=== PATIENT | male | born 1940 | race African-American/Black ===

== ENCOUNTER 2021-04-27 13:30 | Inpatient (IN) | payer OTHER, SELFPAY ==
[~2021-04-27] VITALS: Ht 167.6 cm; Wt 69.4 kg
[~2021-04-27 13:30] MED LIST: GLU500
[2021-04-27 13:41] VITALS: BP 96/66
[2021-04-27] MEDS ORDERED: cefTRIAXone 1,000 MG in DEXT 5% MINI-BAG PLUS 50 ML IV ONE (13:45)
--- NOTE | 2021-04-27 13:45 | NUR ---
Patient sheet moved from [facility] onto bed 12.
--- NOTE | 2021-04-27 13:50 | NUR ---
80 Y/O MALE BIBA FROM [facility] FOR BP 74/32 AFTER 3HRS OF DIALYSIS, PT GIVEN BOLUS NS. PER EMT ON ARRIVAL PT ALOC, BP 109/45. DIALYSIS MWF, ACCESS TO RIGHT UPPER CHEST. PT HAS A COSME IN WITH 100CC OF CLOUDY URINE. GCS 8, BASELINE GCS 15. UPON ASSESSMENT, PT A&OX1 TO LAST NAME, EYE OPENING SPONTANEOUS, RESPONDS TO PAINFUL STIMULI, NON-VERBAL. ACCUCHEK DURING TRIAGE 169. PT PLACED ONTO CALIBRATION TECHNICIAN. BED LOCKED IN LOWEST POSITION, SIDE RAILS X 2 FOR SAFETY. PMH: HTN, ESRD, DEMENTIA MEDS: ASA 81, MUPIROCIN, VITAMIN D3, FINASTERIDE, ATORVASTATIN, DONEPEZIL, TAMULOSIN, HYDRALAZINE, INSULIN HUMULIN R NKA
--- NOTE | 2021-04-27 14:06 | NUR ---
CT at bedside transported pt by suhail.
[2021-04-27] MEDS ORDERED: cefTRIAXone 1,000 MG VIAL ONE (14:08)
--- NOTE | 2021-04-27 14:15 | NUR ---
Urin sample handed to CPT Eladio at ER bedside. Pina drained and urine collected.
--- NOTE | 2021-04-27 14:15 | NUR ---
Lab at bedside waiting for pt to return from CT
--- NOTE | 2021-04-27 14:25 | NUR ---
Pt returned from CT; placed back onto court monitor. Lab at bedside for blood draw
--- NOTE | 2021-04-27 14:45 | NUR ---
Patient arousable to verbal command but unable to answer questions at this time. school bus monitor remains in place. Bed locked in lowest position, side rails x 2 for pt safety.
--- NOTE | 2021-04-27 14:45 | NUR ---
Dr. Hall is evaluating patient at bedside.
[2021-04-27 15:02] LABS: APPEARANCE,URINE CLOUDY (CLEAR); BILIRUBIN,URINE NEGATIVE (NEGATIVE); BLOOD, URINE 3+ (NEGATIVE); COLOR,URINE YELLOW (YELLOW); LEUKOCYTE ESTERASE ,URINE 2+ (NEGATIVE); NITRITE, URINE NEGATIVE (NEGATIVE); UGLUCOSE NEGATIVE (NEGATIVE)
[2021-04-27 15:03] LABS: BASOPHILS % (AUTO) 0.3 % (0.0-2.0); EOSINOPHILS % (AUTO) 0.2 % (0.0-4.0); HEMATOCRIT 21.1 % (36-52); HEMOGLOBIN 7.1 g/dL (12.0-18.0); LYMPHOCYTES # (AUTO) 0.4 K/uL (2.0-11.5); LYMPHOCYTES % (AUTO) 5.2 % (20.5-51.1); MEAN CORPUSCULAR HEMOGLOBIN 34 pg (27-31); MEAN CORPUSCULAR HGB CONC 34 g/dL (33-37); MEAN CORPUSCULAR VOLUME 101.5 fL (80-94); MONOCYTES # (AUTO) 0.5 K/uL (0.8-1.0); MONOCYTES % (AUTO) 5.4 % (1.7-9.3); NEUTROPHILS # (AUTO) 7.7 K/uL (1.8-7.7); NEUTROPHILS % (AUTO) 88.9 % (42.2-75.2); PLATELET COUNT (AUTO) 259 K/uL (140-450); RED BLOOD CELL COUNT(AUTO) 2.07 MIL/uL (4.20-6.10); RED CELL DISTRIBUTION WIDTH 12.9 % (11.6-13.7); WHITE BLOOD COUNT (AUTO) 8.7 K/uL (4.8-10.8)
[2021-04-27 15:07] LABS: RBC,URINE 50-80 /HPF (0-5); WBC,URINE 80-100 /HPF (0-5)
[2021-04-27 15:23] LABS: ALBUMIN 2.2 g/dL (3.4-5.0); ANION GAP 14.1 (8-16); ASPARTATE AMINOTRANSFERASE 46 U/L (15-37); CHLORIDE 103 mmol/L (98-107); CREATININE 2.8 mg/dL (0.6-1.3); GLUCOSE 197 mg/dL (74-106); POTASSIUM 3.1 mmol/L (3.5-5.1); SODIUM SERUM 147 mmol/L (136-145); TOTAL BILIRUBIN 0.9 mg/dL (0.0-1.0); UREA NITROGEN, BLOOD 40 mg/dL (7-18)
--- NOTE | 2021-04-27 15:27 | NUR ---
EVARISTO johnson swab collected, walked to lab and handed to CPT Eladio
--- NOTE | 2021-04-27 16:42 | NUR ---
Patient arousable to name, states "hi," unable to respond to any questions needs at this time.
--- NOTE | 2021-04-27 17:31 | NUR ---
Attempted to contact [facility], placed on hold >5 min. Will recontact.
--- NOTE | 2021-04-27 17:45 | NUR ---
SPOKE WITH BERTO, SILVERLIGHT DEVELOPER AT [facility] WHO STATES PATIENT BASELINE A&OX2-3. LAST NORMAL TODAY [phone] PRIOR TO TRANSPORT TO DIALYSIS CENTER. RN REPORTS ADDITOINAL MED NORCO [phone] LAST DOSE 1230AM LAST NIGHT. RN ALSO STATES NEW WOUND TO R HEEL W/ DISCLORATION.
--- NOTE | 2021-04-27 18:09 | NUR ---
[facility] CONTACTED; SANDRA THOMSON STATES PATIENT IS FULL CODE, FULL TREATMENT.
--- NOTE | 2021-04-27 18:15 | NUR ---
Dr. Chapin is evaluating patient at bedside.
[2021-04-27] MEDS ORDERED: ACETAMINOPHEN 325 MG TAB PO PRN (18:35)
[2021-04-27] MEDS ORDERED: ONDANSETRON 4 MG/2 ML VIAL IM/IVP PRN (18:35)
[2021-04-27] MEDS ORDERED: SODIUM PHOS / POTASSIUM PHOS 1 PKT PDR PO PRN (18:35)
[2021-04-27] MEDS ORDERED: MORPHINE SULFATE 2 MG/ML SYR IVP PRN (18:35)
[2021-04-27] MEDS ORDERED: DOCUSATE SODIUM 100 MG GELCAP PO PRN (18:35)
[2021-04-27] MEDS ORDERED: MAGNESIUM OXIDE 400 MG TAB PO PRN (18:35)
--- NOTE | 2021-04-27 18:40 | NUR ---
# 16 FR Pina catheter with 10 ml utilizing sterile technique. Immediate return of 0 ml urine noted. Bedside drainage bag placed below level of bladder. Urine sample collected and sent to lab. Pt tolerated procedure well.
[2021-04-27] MEDS: POTASSIUM CHLORIDE 10 MEQ TABER PO PRN (18:53)
[2021-04-27] MEDS: NACL 0.9% 1,000 ML IV SCH (18:54)
[2021-04-27] MEDS ORDERED: ASPI-1129 PO (18:58)
[2021-04-27] MEDS ORDERED: MV-M1TAB9 PO (19:00)
[2021-04-27] MEDS ORDERED: FINA5TAB1 PO (19:06)
[2021-04-27] MEDS ORDERED: LIP80 PO (19:06)
[2021-04-27] MEDS ORDERED: DONE10TA10 PO (19:06)
[2021-04-27] MEDS ORDERED: TAMS0.4C97 PO (19:10)
[2021-04-27] MEDS ORDERED: HYDR-1098 PO (19:10)
[2021-04-27] MEDS ORDERED: ACET-9525 PO (19:10)
[2021-04-27 19:17] LABS: PHOSPHORUS 3.5 mg/dL (2.5-4.9)
--- NOTE | 2021-04-27 19:23 | NUR ---
Received report from Fady MARTÍNEZ for continuity of care.
--- NOTE | 2021-04-27 19:23 | NUR ---
Report and transfer of care endorsed to MAURICIO Ugalde.
--- NOTE | 2021-04-27 19:38 | NUR ---
patient in high fowlers with daughter at bedside. patient AAOx2-place, name. VSS. Safety measures in place, will continue to monitor patient.
--- NOTE | 2021-04-27 20:06 | NUR ---
PATIENT REPOSITIONED, TO SUPINE, PATIENT AAOX2, VSS. COMPLAINS OF NO PAIN. SAFETY MEASURES ARE IN PLACE, WILL CONTINUE TO MONITOR PATIENT
--- NOTE | 2021-04-27 23:29 | NUR ---
LAB AT BEDSIDE FOR BLOOD DRAWS
[2021-04-27] MEDS ORDERED: DEXTROSE 50% 50 ML SYR IVP PRN (23:35)
[2021-04-27] MEDS ORDERED: FUROSEMIDE 20 MG/2 ML VIAL IVP ONE (23:40)
[2021-04-27] MEDS ORDERED: ALBUTEROL SULFATE/IPRATROPIU 3 ML SOL IH PRN (23:45)
--- NOTE | 2021-04-27 23:55 | NUR ---
contacted MD Chapin about parameters for BP and HR in reference to Lasix 20mg. patient BP trending in the lower side. made aware. awaiting for MD for orders.
--- NOTE | 2021-04-27 23:58 | NUR ---
per MD Dari May will be DC and dialysis will monitor the fluid balance.
--- NOTE | 2021-04-28 00:33 | NUR ---
called daughter about dialysis schedule, daughter does not know about the schedule but will find out and will call back with information. all daughter knows is that he got dialysized on tuesday
--- NOTE | 2021-04-28 00:52 | NUR ---
Daughter vriy called back about dialysis days for patient: per daughter- Mondays, wednesdays, and fridays at 09:15 at [facility]
--- NOTE | 2021-04-28 02:13 | NUR ---
provided patient with blankets and repositioning to the left side. patient resting. VSS. Safety measures are in place, will continue to monitor patient
--- NOTE | 2021-04-28 03:55 | NUR ---
Patient appears to be resting comfortably in bed. Vital Signs within normal limits. Respirations even and unlabored. Safety measures are in place, will continue to monitor patient.
--- NOTE | 2021-04-28 07:10 | NUR ---
Pt report given to Stefany MARTÍNEZ. Transfer of care at this time.
--- NOTE | 2021-04-28 07:11 | NUR ---
REPORT RECEIVED FROM MAURICIO ZELAYA. TRANSFER OF CARE RECEIVED.
[2021-04-28] MEDS: BLOOD GLUCOSE MONITORING 1 DEV DEV FS SCH ×4 (07:51→21:00)
[2021-04-28 08:00] LABS: BASOPHILS % (AUTO) 0.5 % (0.0-2.0); EOSINOPHILS # (AUTO) 0.1 K/uL (0-0.4); EOSINOPHILS % (AUTO) 0.7 % (0.0-4.0); HEMATOCRIT 20.8 % (36-52); HEMOGLOBIN 7.2 g/dL (12.0-18.0); LYMPHOCYTES # (AUTO) 0.7 K/uL (2.0-11.5); LYMPHOCYTES % (AUTO) 9.2 % (20.5-51.1); MEAN CORPUSCULAR HEMOGLOBIN 34 pg (27-31); MEAN CORPUSCULAR HGB CONC 35 g/dL (33-37); MEAN CORPUSCULAR VOLUME 99.5 fL (80-94); MONOCYTES # (AUTO) 0.8 K/uL (0.8-1.0); NEUTROPHILS # (AUTO) 6.2 K/uL (1.8-7.7); NEUTROPHILS % (AUTO) 79.6 % (42.2-75.2); PLATELET COUNT (AUTO) 236 K/uL (140-450); RED BLOOD CELL COUNT(AUTO) 2.09 MIL/uL (4.20-6.10); RED CELL DISTRIBUTION WIDTH 13.1 % (11.6-13.7); WHITE BLOOD COUNT (AUTO) 7.8 K/uL (4.8-10.8)
[2021-04-28] MEDS: INSULIN LISPRO SLIDING SCALE 100 UNITS/ML VIAL SUBQ PRN ×3 (08:00→17:52)
[2021-04-28 08:11] LABS: ANION GAP 9.8 (8-16); CARBON DIOXIDE 31.9 mmol/L (21-32); CHLORIDE 105 mmol/L (98-107); CREATININE 3.7 mg/dL (0.6-1.3); GLUCOSE 188 mg/dL (74-106); POTASSIUM 3.7 mmol/L (3.5-5.1); SODIUM SERUM 143 mmol/L (136-145); UREA NITROGEN, BLOOD 52 mg/dL (7-18)
--- NOTE | 2021-04-28 08:35 | NUR ---
Patient will be admitted to care of DR. ARRIAGA. Admited to TELE. Will go to room 110A. Belongings list completed. Report to . VSS. IV REMAINS PATENT AND INTACT.
--- NOTE | 2021-04-28 08:40 | NUR ---
PATIENT ARRIVE TO UNIT VIA GURNEY. PATIENT AWAKE. PATIENT ON 2 L VIA NASAL CANNULA. NO DISTRESS NOTED. PATIENT HAS R HAND 22G. RUNNING NS 22G. PATIENT HAS BILATERAL HEEL PRESSURE WOUNDS. GENERALIZED EDEMA NOTED. PATIENT HAS SUBCLAVE RIGHT UPPER CHEST FOR DIALYSIS. ALL SAFETY MEASURES IN PLACE. CALL LIGHT WITHIN NORMAL LIMITS. WILL CONTINUE TO MONITOR.
--- NOTE | 2021-04-28 09:12 | NUR ---
PATIENT HAS BEEN SCREENED AND CATEGORIZED MODERATE NUTRITION RISK. PATIENT WILL BE SEEN WITHIN 3-5 DAYS OF ADMISSION. 04/30/21 05/02/[address]
[2021-04-28] MEDS: ECOTRIN 81 MG TABEC PO SCH (09:54)
[2021-04-28] MEDS: hydrALAZINE 25 MG TAB PO SCH ×2 (09:55→21:00)
[2021-04-28] MEDS: FINASTERIDE 5 MG TAB PO SCH (09:55)
[2021-04-28] MEDS: ATORVASTATIN 80 MG TAB PO SCH (09:56)
--- NOTE | 2021-04-28 10:15 | NUR ---
PATIENT AWAKE. NO ACUTE DISTRESS NOTED. PATIENT ON 2 LITER VIA NASAL CANNULA. PATIENT SATING AT 100%. ALL SAFETY MEASURES IN PLACE. CALL LIGHT WITHIN REACH. WILL CONTINUE TO MONITOR.
--- NOTE | 2021-04-28 12:06 | NUR ---
DC PLANNIN YRS OLD MALE PATIENT WAS ADMITTED FROM HOME WITH A DX OF ALOC ESRD. PATIENT HAS A HX OF DM, HT, ESRD ON HD MWF AND DM. CXR SHOWED NO ACUTE CARDIOPULMONARY DISEASE , HEAD CT SHOWED MODERATE ATROPHY WITH CHRONIC CHANGES. RAPID COVID TEST NEGATIVE. URINE AND BLOOD CULTURE PENDING. ADMINISTERED IVF, IV ABX ROCEPHIN AND CONTINUED HOME MEDS. CONSULTED WITH CANDY CUTTER MACHINE FOR ELEVATED TROP AND DUMPER BAILER OPERATOR FOR ESRD. DC PLAN TO GO HOME WHEN STABLE CM TO FOLLOW Addendum: 04/30/21 at 1654 by Yani Kelly RN DC PLANNING: NORRIS TORRES LEFT A MESSAGE. CM TO FOLLOW Addendum: 05/01/21 at 1535 by Yani Kelly RN DC PLANNING: NORRIS RANDALL SPOKE WITH [facility]A PROVIDE THE AUTH [id number] AND WORKINGON THE AUTH FOR TRANPOST AND DIALYSIS TRANSPORT. CM TO FOLLOW Addendum: 05/01/21 at 1634 by Yani Kelly RN DC PLANNING: PT IS ACCEPTED AT [facility] CAN GO TO ROOM 18C .CALLED [facility] SPOKE WITH MIGUEL PROVIDE THE AUTH FOR TRANSPORT [id number]. PT NEEDS GURNEY TRANSPORT CALLED [facility] STATED THEY ARE UNABLE TO PROVIDE GURNEY TRANSPORT PT. PER CURT LOOKING FOR A GURNEY TRANSPORT. CM TO FOLLOW
--- NOTE | 2021-04-28 12:45 | NUR ---
PATIENT AWAKE. NO ACUTE DISTRESS NOTED. PATIENT ON 2 LITER VIA NASAL CANNULA. PATIENT SATING AT 100%. DR. ARRIAGA AT BEDSIDE TRYING TO ATTEMPT IV INSERTION. RIGHT HAND IV INFILTRATED ALL SAFETY MEASURES IN PLACE. CALL LIGHT WITHIN REACH. WILL CONTINUE TO MONITOR.
--- NOTE | 2021-04-28 14:48 | NUR ---
PATIENT AWAKE. NO ACUTE DISTRESS NOTED. PATIENT ON 2 LITER VIA NASAL CANNULA. PATIENT SATING AT 100%. NEW IV INSERTED TO LEFT HAND 22 G. ALL SAFETY MEASURES IN PLACE. CALL LIGHT WITHIN REACH. WILL CONTINUE TO MONITOR.
[2021-04-28 16:00] VITALS: BP 129/53
--- NOTE | 2021-04-28 16:30 | NUR ---
PATIENT SLEEPING. NO ACUTE DISTRESS NOTED. PATIENT ON 2 L VIA NASAL CANNULA. PATIENT SATING AT 100%. CALL LIGHT WITHIN REACH. WILL CONTINUE TO MONITOR.
[2021-04-28] MEDS: DONEPEZIL 10 MG TAB PO SCH (17:54)
[2021-04-28] MEDS: NACL 0.9% 1,000 ML IV SCH (17:58)
--- NOTE | 2021-04-28 18:10 | NUR ---
PATIENT SLEEPING. NO ACUTE DISTRESS NOTED. PATIENT ON 2 LITER VIA NASAL CANNULA. PATIENT SATING AT 100%. ALL SAFETY MEASURES IN PLACE. CALL LIGHT WITHIN REACH. WILL CONTINUE TO MONITOR.
--- NOTE | 2021-04-28 19:05 | NUR ---
ENDORSED TO TWISTER TENDER NURSE FOR CONTINUITY OF CARE. PATIENT STABLE. ALL SAFETY MEASURES IN PLACE.
[2021-04-28 20:00] VITALS: BP 130/70
[2021-04-28] MEDS: TAMSULOSIN 0.4 MG CAP PO SCH (21:00)
[2021-04-28] MEDS: HYDROcodone/APAP 5/325 MG 1 TAB TAB PO PRN (22:20)
[2021-04-29 00:19] VITALS: BP 129/69
[2021-04-29 04:00] VITALS: BP 130/70
[2021-04-29] MEDS: HYDROcodone/APAP 5/325 MG 1 TAB TAB PO PRN (04:01)
--- NOTE | 2021-04-29 05:38 | NUR ---
PT SLEPT WELL AFTER CONTROLLING HIS PAIN , VSS , SR , I IRRIGATED THE FCC FOUR TIMES WITH BLOODY URINE
[2021-04-29] MEDS: BLOOD GLUCOSE MONITORING 1 DEV DEV FS SCH ×4 (06:26→20:46)
[2021-04-29] MEDS: INSULIN LISPRO SLIDING SCALE 100 UNITS/ML VIAL SUBQ PRN ×3 (06:28→20:49)
[2021-04-29 06:56] LABS: BASOPHILS % (AUTO) 0.3 % (0.0-2.0); EOSINOPHILS # (AUTO) 0.1 K/uL (0-0.4); EOSINOPHILS % (AUTO) 1.2 % (0.0-4.0); LYMPHOCYTES # (AUTO) 0.9 K/uL (2.0-11.5); LYMPHOCYTES % (AUTO) 14.6 % (20.5-51.1); MEAN CORPUSCULAR HEMOGLOBIN 34 pg (27-31); MEAN CORPUSCULAR HGB CONC 34 g/dL (33-37); MEAN CORPUSCULAR VOLUME 98.9 fL (80-94); MONOCYTES # (AUTO) 0.6 K/uL (0.8-1.0); MONOCYTES % (AUTO) 8.9 % (1.7-9.3); NEUTROPHILS # (AUTO) 4.9 K/uL (1.8-7.7); PLATELET COUNT (AUTO) 259 K/uL (140-450); RED BLOOD CELL COUNT(AUTO) 1.92 MIL/uL (4.20-6.10); RED CELL DISTRIBUTION WIDTH 12.8 % (11.6-13.7); WHITE BLOOD COUNT (AUTO) 6.5 K/uL (4.8-10.8)
[2021-04-29 06:59] LABS: ANION GAP 12.2 (8-16); CARBON DIOXIDE 30.3 mmol/L (21-32); CHLORIDE 102 mmol/L (98-107); GLUCOSE 178 mg/dL (74-106); POTASSIUM 3.5 mmol/L (3.5-5.1); SODIUM SERUM 141 mmol/L (136-145)
--- NOTE | 2021-04-29 07:10 | NUR ---
RECEIVE REPORT FROM EXCEPTIONAL NEEDS TEACHER NURSE FOR CONTINUITY OF CARE. PATIENT SLEEPING. NO ACUTE DISTRESS NOTED. ALL SAFETY MEASURES IN PLACE. CALL LIGHT WITHIN REACH. WILL CONTINUE TO MONITOR.
[2021-04-29 08:00] VITALS: BP 107/44
[2021-04-29 08:01] LABS: UREA NITROGEN, BLOOD 72 mg/dL (7-18)
[2021-04-29 08:02] LABS: CREATININE 4.3 mg/dL (0.6-1.3)
--- NOTE | 2021-04-29 08:04 | NUR ---
DIALYSIS NURSE CALLED TO NOTIFY OF HD ORDER FOR PATIENT TODAY.
[2021-04-29 08:08] LABS: HEMOGLOBIN 6.5 g/dL (12.0-18.0)
[2021-04-29] MEDS ORDERED: VANCOMYCIN PER PHARMACY MC PRN (08:25)
[2021-04-29] MEDS: hydrALAZINE 25 MG TAB PO SCH ×2 (09:00→20:46)
--- NOTE | 2021-04-29 09:00 | NUR ---
PATIENT MEDICATION HYDRALAZINE HELD DUE TO PATIENT BLOOD PRESSURE BEING LOW. MD AWARE. PATIENT ALSO GETTING HD.
[2021-04-29] MEDS: ATORVASTATIN 80 MG TAB PO SCH (09:26)
[2021-04-29] MEDS: FINASTERIDE 5 MG TAB PO SCH (09:27)
[2021-04-29] MEDS: ECOTRIN 81 MG TABEC PO SCH (09:27)
--- NOTE | 2021-04-29 10:25 | NUR ---
LOC AWAKE STABLE GOOD CHEST RISE AIRWAY PATENT RECEIVED ON SUPPLEMENTAL OXYGEN AT 2 LPM VIA NC HEMODIALYSIS IN PROGRESS
--- NOTE | 2021-04-29 11:00 | NUR ---
REASON FOR EVALUATION: RIGHT HEEL WOUND WOUND ASSESSMENT COMPLETED ON THIS 72 Y/O MALE ADMITTED TO [facility] UNIT FOR ALOC, ESRD. PAST MEDICAL HISTORY INCLUDES: HTN, BPH, ESRD ON HD, DM. ALL ABOVE INFORMATION WAS OBTAINED FROM THE ADMISSION H&P. LABS ARE WBC:6.5, H/H:6.5/19.0, GLUCOSE:178. PATIENT IS AAOX2, VERBAL, CALM, CONFUSED AND FORGETFUL. SKIN IS WARM TO TOUCH AND COLOR APPROPRIATE TO ETHNICITY. ORAL MUCOSAL MEMBRANES MOIST. RIGHT UPPER CHEST TUNNELED HD CATHETER IN PLACE, DRESSING DRY, CLEAN, AND INTACT. REQUIRES ASSISTANCE WITH TURNING. PLAN OF CARE AND PREVENTATIVE MEASURES DISCUSSED WITH PATIENT AND PRIMARY RN. PATIENT VERBALIZED UNDERSTANDING. REINFORCEMENT NEEDED. PATIENT ADMITTED WITH RIGHT HEEL DTI. COMORBIDITIES RELATED TO FURTHER SKIN BREAKDOWN, SUCH DECREASED FUNCTIONAL MOBILITY. PATIENT ALLERGIC TO IODINE. INTEGUMENTARY: - RIGHT HEEL DTI - 6 X 4 X 0 CM WITH WOUND BED BLACK IN COLOR, NON-BLANCHABLE REDNESS, NO DRAINAGE, PERIWOUND INTACT AND PINK. NO ODOR. RECOMMENDATIONS: - RIGHT HEEL DTI - CLEANSE WITH NS, PAT DRY, AND APPLY ISLAND DRESSING DAILY AND PRN IF SOILED. - OFFLOAD BILATERAL HEELS BY PLACING BILATERAL HEEL PROTECTORS. - ASSESS AND MONITOR SKIN CONDITION DURING POSITION CHANGES AND QSHIFT.
--- NOTE | 2021-04-29 11:50 | NUR ---
PATIENT AWAKE AND ALERT. BREATHING EVEN AND UNLABORED. DIALYSIS NURSE AT BEDSIDE DOING HD. PATIENT GIVEN ONE UNIT OF PACK BLOOD CELL BY DIALYSIS NURSE. VS STABLE. ALL SAFETY MEASURES IN PLACE. CALL LIGHT WITHIN REACH WILL CONTINUE TO MONITOR.
[2021-04-29 12:00] VITALS: BP 132/44
--- NOTE | 2021-04-29 12:10 | NUR ---
PATIENT AWAKE AND ALERT. BREATHING EVEN AND UNLABORED. DIALYSIS NURSE AT BEDSIDE CONTINUES WITH DOING HD. NO REACTION NOTED FROM BLOOD TRANSFUSION. VS STABLE. ALL SAFETY MEASURES IN PLACE. CALL LIGHT WITHIN REACH WILL CONTINUE TO MONITOR.
--- NOTE | 2021-04-29 12:45 | NUR ---
PATIENT SLEEPING. BREATHING EVEN AND UNLABORED. DIALYSIS NURSE AT BEDSIDE CONTINUES WITH DOING HD. NO REACTION NOTED FROM BLOOD TRANSFUSION. VS STABLE. ALL SAFETY MEASURES IN PLACE. CALL LIGHT WITHIN REACH WILL CONTINUE TO MONITOR.
--- NOTE | 2021-04-29 14:58 | NUR ---
PATIENT AWAKE AND ALERT. BREATHING EVEN AND UNLABORED. DIALYSIS NURSE AT BEDSIDE. PER DIALYSIS NURSE 1 L TAKEN. VS STABLE. ALL SAFETY MEASURES IN PLACE. CALL LIGHT WITHIN REACH WILL CONTINUE TO MONITOR.
[2021-04-29 16:00] VITALS: BP 132/54
[2021-04-29] MEDS ORDERED: VANCOMYCIN 500 MG in DEXTROSE 5% 100 ML IV SCH (16:00)
--- NOTE | 2021-04-29 16:45 | NUR ---
PATIENT AWAKE AND ALERT. BREATHING EVEN AND UNLABORED. NO ACUTE DISTRESS NOTED. PATIENT ON 2L NC. PATIENT SATING AT 98%. VS STABLE. ALL SAFETY MEASURES IN PLACE. CALL LIGHT WITHIN REACH WILL CONTINUE TO MONITOR.
[2021-04-29] MEDS: DONEPEZIL 10 MG TAB PO SCH (16:54)
--- NOTE | 2021-04-29 17:46 | NUR ---
PATIENT SLEEPING. BREATHING EVEN AND UNLABORED. PATIENT ON 2 L NC. PATIENT SATING AT 98%. ALL SAFETY MEASURES IN PLACE. CALL LIGHT WITHIN REACH WILL CONTINUE TO MONITOR.
[2021-04-29] MEDS: NACL 0.9% 1,000 ML IV SCH (18:35)
--- NOTE | 2021-04-29 19:10 | NUR ---
ENDORSED TO CORRECTION LIEUTENANT NURSE FOR CONTINUITY OF CARE. PATIENT STABLE. ALL SAFETY MEASURES IN PLACE.
--- NOTE | 2021-04-29 19:10 | NUR ---
RECEIVED PATIENT FROM AM NURSE FOR CONTINUITY OF CARE. PATIENT IS A/A/O X2. MINIMAL COMMUNICATE. RESPIRATORY EVEN AND UNLABORED, ON 2L NC, O2 SAT 99%, NO SIGN OF DISTRESS NOTED. SKIN WARM, DRY, NON DIAPHORETIC. IV ON RIGHT HAND 22G, INTACT AND PATENT, SALINE LOCK. IV ON LEFT HAND 22G, INTACT AND PATENT, TKO. PATIENT DENIES ANY PAIN OR DISCOMFORT. PLAN OF CARE DISCUSSED. PRECAUTION IN PLACE. CALL LIGHT WITHIN REACH. WILL CONTINUE TO MONITOR.
[2021-04-29 20:00] VITALS: BP 121/58
[2021-04-29] MEDS: TAMSULOSIN 0.4 MG CAP PO SCH (20:46)
--- NOTE | 2021-04-29 20:46 | NUR ---
BLOOD SUGAR CHECK 188, 2 UNITS INSULIN COVER. SCHEDULE MEDICATIONS GIVEN WITH EDUCATION. PATIENT TOLERATED WELL. NO SIGN OF DISTRESS NOTED. ALL SAFETY MEASURES IN PLACE. CALL LIGHT WITHIN REACH WILL CONTINUE TO MONITOR.
--- NOTE | 2021-04-29 21:00 | NUR ---
L FA 20G STARTED, INTACT/PATENT WITH BLOOD RETURN.
--- NOTE | 2021-04-29 22:00 | NUR ---
PATIENT AWAKE AND ALERT. BREATHING EVEN AND UNLABORED. ALL SAFETY MEASURES IN PLACE. CALL LIGHT WITHIN REACH WILL CONTINUE TO MONITOR.
[2021-04-30] VITALS: BP 140/50
--- NOTE | 2021-04-30 | NUR ---
VITAL SIGNS WITHIN NORMAL LIMIT. PATIENT IS SLEEPING, AROUSABLE TO VOICE. BREATHING EVEN AND UNLABORED. ALL SAFETY MEASURES IN PLACE. CALL LIGHT WITHIN REACH WILL CONTINUE TO MONITOR.
--- NOTE | 2021-04-30 02:00 | NUR ---
PATIENT IS SLEEPING. BREATHING EVEN AND UNLABORED. ALL SAFETY MEASURES IN PLACE. CALL LIGHT WITHIN REACH WILL CONTINUE TO MONITOR.
[2021-04-30 04:00] VITALS: BP 144/45
--- NOTE | 2021-04-30 04:00 | NUR ---
PATIENT IS SLEEPING, CHEST RISE AND FALL NOTED. NO SIGN OF DISTRESS NOTED. PRECAUTION IN PLACE. CALL LIGHT WITHIN REACH. WILL CONTINUE TO MONITOR.
[2021-04-30] MEDS: INSULIN LISPRO SLIDING SCALE 100 UNITS/ML VIAL SUBQ PRN ×2 (06:43→17:40)
[2021-04-30] MEDS: BLOOD GLUCOSE MONITORING 1 DEV DEV FS SCH ×4 (06:43→21:50)
--- NOTE | 2021-04-30 06:43 | NUR ---
BLOOD SUGAR CHECK 156, 2 UNIT INSULIN GIVEN TO COVER. EDUCATED PATIENT THE MEDICATION, PATIENT VERBALIZED UNDERSTANDING. PATIENT TOLERATED WELL. NO SIGN OF DISTRESS NOTED. PRECAUTION IN PLACE. CALL LIGHT WITHIN REACH. WILL CONTINUE TO MONITOR.
[2021-04-30 07:24] LABS: ANION GAP 11.9 (8-16); CARBON DIOXIDE 25.5 mmol/L (21-32); CHLORIDE 103 mmol/L (98-107); CREATININE 3.3 mg/dL (0.6-1.3); GLUCOSE 174 mg/dL (74-106); POTASSIUM 3.4 mmol/L (3.5-5.1); SODIUM SERUM 137 mmol/L (136-145); UREA NITROGEN, BLOOD 44 mg/dL (7-18)
[2021-04-30 07:25] LABS: BASOPHILS % (AUTO) 0.5 % (0.0-2.0); EOSINOPHILS # (AUTO) 0.1 K/uL (0-0.4); EOSINOPHILS % (AUTO) 1.1 % (0.0-4.0); HEMATOCRIT 22.7 % (36-52); HEMOGLOBIN 7.8 g/dL (12.0-18.0); LYMPHOCYTES # (AUTO) 0.8 K/uL (2.0-11.5); LYMPHOCYTES % (AUTO) 12.5 % (20.5-51.1); MEAN CORPUSCULAR HEMOGLOBIN 33 pg (27-31); MEAN CORPUSCULAR HGB CONC 34 g/dL (33-37); MEAN CORPUSCULAR VOLUME 94.9 fL (80-94); MONOCYTES # (AUTO) 0.6 K/uL (0.8-1.0); MONOCYTES % (AUTO) 10.4 % (1.7-9.3); NEUTROPHILS # (AUTO) 4.7 K/uL (1.8-7.7); NEUTROPHILS % (AUTO) 75.5 % (42.2-75.2); PLATELET COUNT (AUTO) 247 K/uL (140-450); RED BLOOD CELL COUNT(AUTO) 2.39 MIL/uL (4.20-6.10); RED CELL DISTRIBUTION WIDTH 15.2 % (11.6-13.7); WHITE BLOOD COUNT (AUTO) 6.3 K/uL (4.8-10.8)
--- NOTE | 2021-04-30 07:39 | NUR ---
ENDORSED PATIENT TO AM NURSE FOR CONTINUITY OF CARE. PATIENT IS STABLE.
--- NOTE | 2021-04-30 07:40 | NUR ---
RECEIVED PATIENT FROM CASH SURRENDER CALCULATOR NURSE FOR CONTINUITY OF CARE. PATIENT IS A/A/O X2. MINIMAL COMMUNICATE. RESPIRATORY EVEN AND UNLABORED, ON 2L NC, O2 SAT 97%, NO SIGN OF DISTRESS NOTED. SKIN WARM, DRY, NON DIAPHORETIC. IV ON RIGHT HAND 22G, INTACT AND PATENT, SALINE LOCK. IV ON LEFT HAND 22G, INTACT AND PATENT, TKO. PATIENT DENIES ANY PAIN OR DISCOMFORT. PLAN OF CARE DISCUSSED. PRECAUTION IN PLACE. CALL LIGHT WITHIN REACH. WILL CONTINUE TO MONITOR.
[2021-04-30 08:00] VITALS: BP 127/50
[2021-04-30] MEDS: ECOTRIN 81 MG TABEC PO SCH (09:08)
[2021-04-30] MEDS: FINASTERIDE 5 MG TAB PO SCH (09:08)
[2021-04-30] MEDS: ATORVASTATIN 80 MG TAB PO SCH (09:08)
[2021-04-30] MEDS: hydrALAZINE 25 MG TAB PO SCH ×2 (09:09→20:56)
--- NOTE | 2021-04-30 09:50 | NUR ---
ALL SCHEDULED MEDS GIVEN. PT IS STABLE. NO DISTRESS NOTED. WILL CONTINUE TO MONITOR.
[2021-04-30 12:00] VITALS: BP 145/61
--- NOTE | 2021-04-30 12:15 | NUR ---
BLOOD SUGAR CHECK WAS 141. NO INSULIN COVERAGE NEEDED.
--- NOTE | 2021-04-30 13:50 | NUR ---
OBTAIN OCCULT BLOOD SAMPLE. CHANGED PATIENT'S SHEETS AND PADS. KEPT PATIENT CLEAN AND DRY. NO DISTRESS NOTED. WILL CONTINUE TO MONITOR.
[2021-04-30 16:00] VITALS: BP 114/45
[2021-04-30] MEDS: DONEPEZIL 10 MG TAB PO SCH (17:31)
--- NOTE | 2021-04-30 17:40 | NUR ---
BLOOD SUGAR CHECK WAS 242. ADMINISTERED 4 UNITS OF INSULIN SQ PER MD ORDERED.
[2021-04-30] MEDS: NACL 0.9% 1,000 ML IV SCH (18:40)
--- NOTE | 2021-04-30 19:00 | NUR ---
ENDORSED TO INVESTIGATIVE REPORTER NURSE FOR CONTINUITY OF CARE. PT IS STABLE.
--- NOTE | 2021-04-30 19:05 | NUR ---
RECEIVED PATIENT FROM AM NURSE FOR CONTINUITY OF CARE. PATIENT IS EATING WITH AIR SAMPLER ASSISTANCE. PATIENT A/A/O X3. RESPIRATORY EVEN AND UNLABORED, ON 2L OXYGEN VIA NC. NO SIGN OF DISTRESS NOTED. SKIN WARM, DRY, NON DIAPHORETIC. IV ON LEFT HAND 22G, INTACT AND PATENT, IS INFUSING FLUID ORDER. TUNNEL CATH ON RIGHT CHEST FOR HD. COSME CATH IN PLACE, DARK YAYA URINE COLOR. PATIENT DENIES ANY PAIN OR DISCOMFORT. PLAN OF CARE DISCUSSED, PATIENT VERBALIZED UNDERSTANDING. PRECAUTION IN PLACE. CALL LIGHT WITHIN REACH. WILL CONTINUE TO MONITOR.
[2021-04-30 20:00] VITALS: BP 123/87
--- NOTE | 2021-04-30 20:15 | NUR ---
ENDORSED PATIENT ANOTHER NURSE DUE TO CHANGE ASSIGNMENT.
--- NOTE | 2021-04-30 20:15 | NUR ---
RECEIVED REPORT FROM ROMINA RN FOR CONTINUITY OF CARE. PT SITTING UP AAX1. NO APPARENT S/S OF ACUTE DISTRESS. BREATHING EVEN AND UNLABORED ON 2L NC WITH O2 SAT OF 100%. NO C/O CP, SOB OR PAIN. L HAND 22G DISPLACED BY PATIENT. WILL INSERT NEW IV. POC AND WHITE COMMUNICATION BOARD UPDATED. BED IN LOW/LOCKED POSITION. CALL LIGHT WITHIN REACH. PT ENCOURAGED TO CALL FOR ANY NEEDS/ASSISTANCE. WILL CONTINUE TO MONITOR. Addendum: 05/01/21 at 0131 by Maida Murguia RN R CHEST HD ACCESS DRESSING C/D/I. COSME CATH INTACT/PATENT WITH DARK YELLOW/YAYA DRAINING TO GRAVITY. COSME IRRIGATED, OUTPUT YELLOW.
[2021-04-30] MEDS: TAMSULOSIN 0.4 MG CAP PO SCH (20:56)
[2021-05-01] VITALS: BP 127/56
[2021-05-01 04:00] VITALS: BP 122/63
--- NOTE | 2021-05-01 06:53 | NUR ---
REPORT GIVEN TO ANA LUISA MARTÍNEZ FOR CONTINUITY OF CARE. PT SITTING UP AAOX2. NO APPARENT S/S OF ACUTE DISTRESS. BREATHING EVEN AND UNLABORED. BED IN LOW/LOCKED POSITION. CALL LIGHT WITHIN REACH. ALL NEEDS MET AT THIS TIME.
--- NOTE | 2021-05-01 07:10 | NUR ---
RECEIVED PATIENT FROM COMMERCIAL LIGHT FIXTURE ASSEMBLER NURSE FOR CONTINUITY OF CARE. PATIENT IS A/A/O X2. MINIMAL COMMUNICATE. RESPIRATORY EVEN AND UNLABORED, ON 2L NC, O2 SAT 97%, NO SIGN OF DISTRESS NOTED. SKIN WARM, DRY, NON DIAPHORETIC. IV ON LEFT FOREARM 20 G, INTACT AND PATENT, TKO. RIGHT HEEL REINFORCED WITH DRESSING. C/D/I. PATIENT DENIES ANY PAIN OR DISCOMFORT. PLAN OF CARE DISCUSSED. PRECAUTION IN PLACE. CALL LIGHT WITHIN REACH. WILL CONTINUE TO MONITOR.
[2021-05-01 07:25] LABS: BASOPHILS % (AUTO) 0.5 % (0.0-2.0); EOSINOPHILS # (AUTO) 0.1 K/uL (0-0.4); EOSINOPHILS % (AUTO) 1.5 % (0.0-4.0); HEMATOCRIT 22.3 % (36-52); HEMOGLOBIN 7.6 g/dL (12.0-18.0); LYMPHOCYTES # (AUTO) 0.7 K/uL (2.0-11.5); LYMPHOCYTES % (AUTO) 10.6 % (20.5-51.1); MEAN CORPUSCULAR HEMOGLOBIN 33 pg (27-31); MEAN CORPUSCULAR HGB CONC 34 g/dL (33-37); MEAN CORPUSCULAR VOLUME 95.6 fL (80-94); MONOCYTES # (AUTO) 0.7 K/uL (0.8-1.0); MONOCYTES % (AUTO) 10.4 % (1.7-9.3); NEUTROPHILS # (AUTO) 5.1 K/uL (1.8-7.7); PLATELET COUNT (AUTO) 232 K/uL (140-450); RED BLOOD CELL COUNT(AUTO) 2.34 MIL/uL (4.20-6.10); RED CELL DISTRIBUTION WIDTH 15.5 % (11.6-13.7); WHITE BLOOD COUNT (AUTO) 6.7 K/uL (4.8-10.8)
[2021-05-01 08:00] VITALS: BP 111/54
[2021-05-01] MEDS: BLOOD GLUCOSE MONITORING 1 DEV DEV FS SCH ×4 (08:03→20:44)
[2021-05-01] MEDS: INSULIN LISPRO SLIDING SCALE 100 UNITS/ML VIAL SUBQ PRN ×2 (08:04→17:32)
[2021-05-01 08:43] LABS: ANION GAP 14.1 (8-16); CARBON DIOXIDE 26.5 mmol/L (21-32); CHLORIDE 98 mmol/L (98-107); CREATININE 3.9 mg/dL (0.6-1.3); GLUCOSE 161 mg/dL (74-106); POTASSIUM 3.6 mmol/L (3.5-5.1); SODIUM SERUM 135 mmol/L (136-145); UREA NITROGEN, BLOOD 56 mg/dL (7-18)
[2021-05-01] MEDS: hydrALAZINE 25 MG TAB PO SCH ×2 (09:03→20:45)
[2021-05-01] MEDS: ATORVASTATIN 80 MG TAB PO SCH (09:03)
[2021-05-01] MEDS: FINASTERIDE 5 MG TAB PO SCH (09:04)
[2021-05-01] MEDS: ECOTRIN 81 MG TABEC PO SCH (09:04)
--- NOTE | 2021-05-01 09:25 | NUR ---
REMOVED COSME CATH PER MD'S ORDER. WILL ASSESS VOIDING CAPABILITIES AND WILL MONITOR BLADDER IF >400 CC.
--- NOTE | 2021-05-01 09:50 | NUR ---
ALL SCHEDULED MEDS GIVEN. PT IS STABLE. NO DISTRESS NOTED. WILL CONTINUE TO MONITOR.
[2021-05-01] MEDS ORDERED: ACET-1182 PO (10:25)
[2021-05-01] MEDS ORDERED: HUMSLIDE SUBQ (10:25)
[2021-05-01] MEDS ORDERED: ROC1PM IV (10:25)
[2021-05-01] MEDS ORDERED: GLUC-805 FS (10:25)
[2021-05-01 12:00] VITALS: BP 111/61
[2021-05-01 16:00] VITALS: BP 125/56
--- NOTE | 2021-05-01 16:03 | NUR ---
DIALYSIS NURSE AT BEDSIDE
[2021-05-01] MEDS: DONEPEZIL 10 MG TAB PO SCH (17:20)
--- NOTE | 2021-05-01 18:10 | NUR ---
SPOKE TO [facility]. THEY WILL PROVIDE TRANSPORTATION FOR PATIENT AND WILL ARRIVE AROUND 1999.
[2021-05-01] MEDS: NACL 0.9% 1,000 ML IV SCH (18:35)
--- NOTE | 2021-05-01 18:45 | NUR ---
REMOVED 2 5000 UNIT HEPARIN VIALS IN OMNICELL FOR HD.
--- NOTE | 2021-05-01 19:15 | NUR ---
PATIENT COMPLETED HD. 2 L OUT. PT IS STABLE.
--- NOTE | 2021-05-01 19:20 | NUR ---
SPOKE TO GWEN FROM [facility]. NOTIFIED THAT DIALYSIS TRANSPORTATION FOR TUESDAY IS NOT FOR [facility]. NO TRANSPORTATION IS AVAILABLE TO PICK PT UP TONIGHT SO PT WILL NOT BE DISCHARGED TONIGHT Addendum: 05/01/21 at 1940 by Andrés Ac RN RN WAS NOTIFIED* BY GWEN THAT DIALYSIS TRANSPORTATION FOR TUESDAY IS NOT FOR [facility].
--- NOTE | 2021-05-01 19:32 | NUR ---
PT AWAKE, NODDING HEAD TO VERBAL PROMPTS. GENERALIZED WEAKNESS NOTED. SR ON MONITOR. NO EDEMA NOTED. +2 PULSES INTACT. LUNGS CLEAR, DENIES SOB/COUGH. ABD SOFT NON DISTENDED. TOLERATING PO INTAKE. LOW URINE OUTPUT, ESRD, DIALYSIS DEPENDENT. SKIN INTACT, MILD REDNESS TO BILATERAL HEELS; HEEL PROTECTOR CUSHIONS IN PLACE. L FA IV PATENT INTACT. BED LOCKED IN LOWEST POSITION. CALL LIGHT WITHIN REACH.
--- NOTE | 2021-05-01 19:33 | NUR ---
ENDORSED TO VEHICLE COST ENGINEER NURSE FOR CONTINUITY OF CARE. PT IS STABLE.
[2021-05-01 20:00] VITALS: BP 123/50
[2021-05-01] MEDS: TAMSULOSIN 0.4 MG CAP PO SCH (20:45)
[2021-05-02] VITALS: BP 117/42
--- NOTE | 2021-05-02 00:25 | NUR ---
PT HAD X1 BM, PERICARE DONE. PT TURNED AND REPOSITIONED. WILL CONTINUE TO OBSERVE
--- NOTE | 2021-05-02 01:13 | NUR ---
PT HAS EYES CLOSED; AROUSABLE, DENIES PAIN WILL CONTINUE TO OBSERVE
--- NOTE | 2021-05-02 03:03 | NUR ---
PT HAS EYES CLOSED; AROUSABLE DENIES PAIN. NO S/S OF ACUTE DISTRESS. WILL CONTINUE TO OBSERVE
[2021-05-02 04:00] VITALS: BP 114/46
--- NOTE | 2021-05-02 05:42 | NUR ---
PT HAS EYES CLOSED; AROUSABLE DENIES PAIN. WILL CONTINUE TO OBSERVE
[2021-05-02 07:05] LABS: ANION GAP 10.1 (8-16); CHLORIDE 103 mmol/L (98-107); CREATININE 2.9 mg/dL (0.6-1.3); GLUCOSE 138 mg/dL (74-106); POTASSIUM 3.1 mmol/L (3.5-5.1); SODIUM SERUM 136 mmol/L (136-145); UREA NITROGEN, BLOOD 33 mg/dL (7-18)
[2021-05-02 07:22] LABS: BASOPHILS % (AUTO) 0.5 % (0.0-2.0); EOSINOPHILS # (AUTO) 0.1 K/uL (0-0.4); EOSINOPHILS % (AUTO) 1.8 % (0.0-4.0); HEMATOCRIT 21.4 % (36-52); HEMOGLOBIN 7.3 g/dL (12.0-18.0); LYMPHOCYTES % (AUTO) 14.5 % (20.5-51.1); MEAN CORPUSCULAR HEMOGLOBIN 32 pg (27-31); MEAN CORPUSCULAR HGB CONC 34 g/dL (33-37); MEAN CORPUSCULAR VOLUME 94.9 fL (80-94); MONOCYTES # (AUTO) 0.7 K/uL (0.8-1.0); MONOCYTES % (AUTO) 10.6 % (1.7-9.3); NEUTROPHILS # (AUTO) 4.8 K/uL (1.8-7.7); NEUTROPHILS % (AUTO) 72.6 % (42.2-75.2); PLATELET COUNT (AUTO) 230 K/uL (140-450); RED BLOOD CELL COUNT(AUTO) 2.26 MIL/uL (4.20-6.10); RED CELL DISTRIBUTION WIDTH 15.1 % (11.6-13.7); WHITE BLOOD COUNT (AUTO) 6.6 K/uL (4.8-10.8)
[2021-05-02] MEDS: BLOOD GLUCOSE MONITORING 1 DEV DEV FS SCH ×3 (07:30→16:30)
--- NOTE | 2021-05-02 07:32 | NUR ---
REPORT GIVEN TO DAY SHIFT FOR CONTINUITY OF CARE
--- NOTE | 2021-05-02 07:34 | NUR ---
RECEIVED PATIENT FROM RESIDENT SERVICES COORDINATOR NURSE FOR CONTINUITY OF CARE. PATIENT IS A/A/O X2. MINIMAL COMMUNICATE. RESPIRATORY EVEN AND UNLABORED, ON RA, O2 SAT 97%, NO SIGN OF DISTRESS NOTED. SKIN WARM, DRY, NON DIAPHORETIC. IV ON LEFT FOREARM 20 G, INTACT AND PATENT, TKO. HAS R UPPER CHEST TUNNEL CATH. S/P HD 05/01 2 L OUTPUT. RIGHT HEEL REINFORCED WITH DRESSING. C/D/I. PATIENT DENIES ANY PAIN OR DISCOMFORT. PLAN OF CARE DISCUSSED. PRECAUTION IN PLACE. CALL LIGHT WITHIN REACH. WILL CONTINUE TO MONITOR.
[2021-05-02 08:00] VITALS: BP 122/35
[2021-05-02] MEDS: hydrALAZINE 25 MG TAB PO SCH (08:25)
[2021-05-02] MEDS: ATORVASTATIN 80 MG TAB PO SCH (08:25)
[2021-05-02] MEDS: ECOTRIN 81 MG TABEC PO SCH (08:25)
[2021-05-02] MEDS: FINASTERIDE 5 MG TAB PO SCH (08:25)
--- NOTE | 2021-05-02 08:28 | NUR ---
ALL SCHEDULED MEDS GIVEN. PT IS STABLE. NO DISTRESS NOTED. WILL CONTINUE TO MONITOR.
--- NOTE | 2021-05-02 10:35 | NUR ---
CHECKED ON PATIENT. PATIENT IS STABLE. NO DISTRESS NOTED. WILL CONTINUE TO MONITOR.
[2021-05-02 12:00] VITALS: BP 103/44
--- NOTE | 2021-05-02 12:00 | NUR ---
(05/02/21) RD INITIAL ASSESSMENT COMPLETED PLEASE REFER TO NUTRITION ASSESSMENT UNDER CARE ACTIVITY FOR ESTIMATED NUTRITIONAL NEEDS. RD RECOMMENDATIONS: 1. CONTINUE ON CCHO, RENAL DIET TOLERATED. 2. CONSULT RDN PRN. 3. RD WILL F/U 3-5 DAYS; MODERATE RISK. JANAE CHEN MS, RDN
[2021-05-02] MEDS: INSULIN LISPRO SLIDING SCALE 100 UNITS/ML VIAL SUBQ PRN (12:04)
--- NOTE | 2021-05-02 12:15 | NUR ---
PT AT BEDSIDE.
[2021-05-02] MEDS ORDERED: VANCOMYCIN 500 MG in DEXTROSE 5% 100 ML IV SCH (14:00)
--- NOTE | 2021-05-02 14:44 | NUR ---
NOTIFIED BY HOUSE [facility]P THAT PATIENT WILL BE DISCHARGED TO [facility]. DIALYSIS TRANSPORTATION ON TUESDAY IS SCHEDULED. [facility] WILL BE PICKING PATIENT UP. WILL GIVE PATIENT REPORT TO THE NURSE AT [facility].
--- NOTE | 2021-05-02 15:30 | NUR ---
PLACED PATIENT ON 2L NC. PATIENT SHOWED SIGNS OF INCREASED RESPIRATIONS OF 26 AND O2 SATURATION AT 86%. WILL REASSESS PT AND O2 SATURATION
--- NOTE | 2021-05-02 15:51 | NUR ---
NOTIFIED BY [facility] THAT PATIENT WILL BE TRANSPORTED BY [facility] AND THEY WILL BE ARRIVING IN AN HOUR AND A HALF.
--- NOTE | 2021-05-02 16:08 | NUR ---
ENDORSED PATIENT REPORT TO MAURICIO DENNY AT [facility]. NOTIFIED HER THAT [facility] WILL BE TRANSPORTING THE PATIENT AT 1730.
[2021-05-02 16:09] VITALS: BP 103/44
--- NOTE | 2021-05-02 16:26 | NUR ---
[facility] IS HERE AND PREPARING TO TRANSPORT PATIENT TO [facility]
[2021-05-02] MEDS: POTASSIUM CHLORIDE 10 MEQ TABER PO PRN (16:32)
--- NOTE | 2021-05-02 16:40 | NUR ---
PATIENT DISCHARGED OFF THE UNIT WITH IV ON LFA 20 INTACT AND PATENT. [facility] IS TRANSPORTING PATIENT TO [facility]. PT WAS STABLE PRIOR TO DISCHARGE.
== END 2021-05-02 16:46 | DRG 871 ==
LOC: MED 13:30 → MTU 18:33
PROVIDERS: ADMIT Hospitalist; ATTEND Hospitalist
PROC: 5A1D70Z Performance of Urinary Filtration, Intermittent, Less than 6 Hours Per Day (ICD-10-PCS; 2021-04-28)
PROC: 5A1D70Z Performance of Urinary Filtration, Intermittent, Less than 6 Hours Per Day (ICD-10-PCS; principal; 2021-04-29)
PROC: 30233N1 Transfusion of Nonautologous Red Blood Cells into Peripheral Vein, Percutaneous Approach (ICD-10-PCS; 2021-04-29)
PROC: 5A1D70Z Performance of Urinary Filtration, Intermittent, Less than 6 Hours Per Day (ICD-10-PCS; 2021-05-01)
DX: A41.89 Other specified sepsis (principal); G93.41 Metabolic encephalopathy; E43 Unspecified severe protein-calorie malnutrition; N17.0 Acute kidney failure with tubular necrosis; N18.6 End stage renal disease; I21.4 Non-ST elevation (NSTEMI) myocardial infarction; I13.2 Hypertensive heart and chronic kidney disease with heart failure and with stage 5 chronic kidney disease, or end stage renal disease; E87.0 Hyperosmolality and hypernatremia; B96.1 Klebsiella pneumoniae [K. pneumoniae] as the cause of diseases classified elsewhere; Z20.822 Contact with and (suspected) exposure to COVID-19; D53.9 Nutritional anemia, unspecified; E87.6 Hypokalemia; E86.0 Dehydration; D63.8 Anemia in other chronic diseases classified elsewhere; N30.91 Cystitis, unspecified with hematuria; G30.9 Alzheimer's disease, unspecified; F02.80 Dementia in other diseases classified elsewhere, unspecified severity, without behavioral disturbance, psychotic disturbance, mood disturbance, and anxiety; L89.616 Pressure-induced deep tissue damage of right heel; B96.89 Other specified bacterial agents as the cause of diseases classified elsewhere; D50.0 Iron deficiency anemia secondary to blood loss (chronic); J45.909 Unspecified asthma, uncomplicated; Z66 Do not resuscitate; I48.91 Unspecified atrial fibrillation; E78.5 Hyperlipidemia, unspecified; E11.22 Type 2 diabetes mellitus with diabetic chronic kidney disease; N40.0 Benign prostatic hyperplasia without lower urinary tract symptoms; I50.9 Heart failure, unspecified; Z99.2 Dependence on renal dialysis; Z79.899 Other long term (current) drug therapy; Z79.82 Long term (current) use of aspirin; Z68.24 Body mass index [BMI] 24.0-24.9, adult
CPT/HCPCS: 36415; 70450; 71045; 76770; 80048; 80053; 81001; 82272; 82948; 83605; 83735; 83880; 84100; 84484; 85025; 86886; 86900; 86901; 86920; 87040; 87081; 87086; 90935; 93005; 96365; 97112; 97163-GP; 97530; 99285; J0696; J1644; J2270; J3370; J7060; P9016; Q0092